=== PATIENT | male | born 1985 | race Caucasian/White ===

== ENCOUNTER 2024-03-29 10:15 | Emergency (ER) | payer OTHER ==
[~2024-03-29] VITALS: Ht 165.1 cm; Wt 90.7 kg
[2024-03-29] MEDS ORDERED: Dexamethasone Sodium Phospha 20 MG/5 ML VIAL IM ONE (11:10)
[2024-03-29] MEDS ORDERED: PREDNISONE20 M1 PO (11:13)
[2024-03-29] MEDS ORDERED: TRIAMCINOLONE430 GM TD (11:13)
== END 2024-03-29 18:21 | disposition home or self-care (01) ==
LOC: ED 10:15
DX: L23.7 Allergic contact dermatitis due to plants, except food (principal); R21 Rash and other nonspecific skin eruption; Z88.0 Allergy status to penicillin

== ENCOUNTER 2024-11-02 15:43 | Emergency (ER) | payer OTHER ==
[~2024-11-02] VITALS: Ht 165.1 cm; Wt 81.6 kg
[~2024-11-02 15:43] MED LIST: PREDNISONE20 M1 PO; TRIAMCINOLONE430 GM TD
[2024-11-02 17:57] LABS: BASO # 0.0 10*3/uL (0.0-0.1); BASO % 0.3 % (0.0-1.0); EOS # 0.2 10*3/uL (0.0-0.4); EOS % 2.5 % (1.0-4.0); MEAN CELL VOLUME 89.3 fl (80.0-94.0); MEAN CORPUSCULAR HGB 30.1 pg (27.0-31.0); MEAN PLATELET VOLUME 10.4 fl (9.6-12.3); MONO # 0.5 10*3/uL (0.1-1.0); MONO % 5.2 % (3.0-9.0); NEUT # 4.4 10*3/uL (2.3-7.9); NEUT % 49.7 % (47.0-73.0); NUCLEATED RED BLOOD CELL 0.0 % (0.0-0.0); NUCLEATED RED BLOOD CELL 0.0 10*3/uL (0.0-0.0); PLATELET COUNT AUTOMATED 221 10*3/uL (130-400); RED CELL DISTRI WIDTH 12.0 % (0-14.5)
[2024-11-02 18:11] LABS: BUN 14 mg/dl (9-23)
[2024-11-02] MEDS ORDERED: METHOCARBAMOL750 M1 PO (20:12)
== END 2024-11-02 20:29 | disposition home or self-care (01) ==
LOC: ED 15:43
PROVIDERS: Nurse Practitioner Family
DX: R07.89 Other chest pain (principal); Z88.0 Allergy status to penicillin